=== PATIENT | female | born 1975 | race Caucasian/White ===

== ENCOUNTER 2016-03-24 06:39 | Day surgery (SDC) | payer OTHER ==
[2016-03-24] MEDS ORDERED: LIDOCAINE 1% 5 ML SDV ID PRN (07:13)
[2016-03-24] MEDS ORDERED: LR 1,000 ML IV ONE (07:13)
[2016-03-24] MEDS ORDERED: PROPOFOL/EMULSION 500 MG/50 ML BOTTLE IV ONE (07:50)
[2016-03-24] MEDS ORDERED: fentaNYL 100 MCG/2 ML INJ ONE ×2 (07:50→08:49)
[2016-03-24] MEDS ORDERED: MIDAZOLAM 2 MG/2 ML VIAL ONE (07:57)
[2016-03-24] MEDS ORDERED: PROPOFOL 200 MG/20 ML VIAL ONE (08:04)
[2016-03-24] MEDS ORDERED: ONDANSETRON 4 MG/2 ML VIAL ONE (08:50)
[2016-03-24] MEDS ORDERED: HYDROCODONE/APAP 5/325 TAB ONE (10:02)
--- NOTE | 2016-03-24 12:28 | GOP ---
[f rep st] OPERATIVE REPORT DATE OF OPERATION: 03/24/2016 SURGEON: Janneth Cm MD ANESTHESIA: General LMA. ANESTHESIOLOGIST: Roma Schmitt DO PREOPERATIVE DIAGNOSIS: 1. Dysfunctional uterine bleeding including midcycle spotting and irregular bleeding. 2. Very stenotic cervix. 3. Endometrial polyps. POSTOPERATIVE DIAGNOSIS: 1. Dysfunctional uterine bleeding including midcycle spotting and irregular bleeding. 2. Very stenotic cervix. 3. Endometrial polyps. PROCEDURE PERFORMED: Extensive dilation of cervix with eventual diagnostic hysteroscopy and hysteros copic polypectomy. FINDINGS: A very narrow cervix, otherwise normal endometrium, normal tubal ostia, normal cervix. ESTIMATED BLOOD LOSS: Minimal. DESCRIPTION OF PROCEDURE: With informed consent signed, patient was taken to the operating room, [facility] under general anesthesia and placed in the low dorsal lithotomy position. Prepped and draped in the usual sterile fashion. Bladder previously emptied. Tenaculum placed on the posterior lip of the cervix. The cervix was gently dilated. Head start with the 1 mm dilator and slowly go up to 9.5 mm , but this was done very cautiously and successfully. The hysteroscope was placed into the endometri um using normal saline as a filling medium and findings as noted above. A hysteroscopic morcellator was placed into the uterine cavity and resection of the tissue done without complication. There was no aggressive curetting. Once it was felt all the tissue was removed, the hysteroscope was removed. The patient was placed in a supine position, awakened in the operating room and taken to the recover y room in stable condition having tolerated the procedure well. Net fluid deficit was less than 50 cc. INDICATIONS FOR PROCEDURE: Patient is a 40-year-old, who has had problematic bleeding. Ultrasound s howed thickened endometrium with Doppler flow indicating endometrial polyps. Attempt at doing a sono hysterogram was unsuccessful due to a very stenotic cervix. Recommend cervical dilation and hysteros copic evaluation in the operating room for diagnostic purposes and therapeutic purposes. COMPLICATIONS: None. /[id number]/MODL
== END 2016-03-24 10:36 | disposition home or self-care (01) ==
LOC: FSGY 06:39
PROVIDERS: ATTEND Obstetrics & Gynecology Gynecology
PROC: 0UB98ZZ Excision of Uterus, Via Natural or Artificial Opening Endoscopic (ICD-10-PCS; principal; 2016-03-24 08:08)
DX: N84.0 Polyp of corpus uteri (principal); N88.2 Stricture and stenosis of cervix uteri; E78.00 Pure hypercholesterolemia, unspecified; J45.909 Unspecified asthma, uncomplicated
CPT/HCPCS: C1782; J2250; J2405; J2704; J3010

== ENCOUNTER → 2016-07-20 | Outpatient (CLI) | payer OTHER | LOC: BMCIMAGING 12:04 | PROVIDERS: ATTEND Family Medicine | DX: M53.3 Sacrococcygeal disorders, not elsewhere classified (principal); M25.552 Pain in left hip ==

== ENCOUNTER → 2016-12-18 | Outpatient (CLI) | payer OTHER | LOC: FIMAGING 08:20 | PROVIDERS: ATTEND Obstetrics & Gynecology Gynecology | DX: Z12.31 Encounter for screening mammogram for malignant neoplasm of breast (principal) | CPT/HCPCS: G0202 ==

== ENCOUNTER → 2017-01-02 | Outpatient (CLI) | payer OTHER | LOC: FIMAGING 11:29 | PROVIDERS: ATTEND Obstetrics & Gynecology Gynecology | DX: R92.8 Other abnormal and inconclusive findings on diagnostic imaging of breast (principal) | CPT/HCPCS: G0206 ==

== ENCOUNTER → 2017-05-04 | Outpatient (CLI) | payer OTHER | LOC: FIMAGING 12:17 | PROVIDERS: ATTEND Obstetrics & Gynecology Gynecology | DX: N64.4 Mastodynia (principal); Z80.3 Family history of malignant neoplasm of breast ==

== ENCOUNTER → 2018-03-02 | Outpatient (CLI) | payer OTHER | LOC: FIMAGING 10:49 | PROVIDERS: ATTEND Obstetrics & Gynecology Gynecology | DX: Z12.31 Encounter for screening mammogram for malignant neoplasm of breast (principal); Z80.3 Family history of malignant neoplasm of breast ==